=== PATIENT | female | born 1995 | race Asian ===

== ENCOUNTER 2017-04-15 17:47 | Emergency (ER) | payer SELFPAY ==
[2017-04-15] MEDS ORDERED: HYDROmorphone 0.5 MG/0.5 ML Syringe IM ONE (18:01)
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
--- NOTE | 2017-04-19 12:10 | CR ---
Chest: Portable view of the chest was obtained. Comparison: No prior study. Heart size and mediastinum are within normal limits. Lungs are clear. Bony structures are grossly intact. Impression: 1. Nothing acute is identified on portable chest x-ray. Diagnostic code #1
--- NOTE | 2017-04-19 16:02 | CT ---
CT lumbar spine Technique: Multiple axial sections were obtained from the mid T12 level inferiorly through the mid fifth sacral segment. Findings: Vertebral body heights and disc spaces are maintained. Fractures are seen within the left transverse process of L2, L3 and L4. Additional fracture is identified involving the inferior articular process of L5 within the L5-S1 right-sided apophyseal joint. No additional fracture or other abnormality is seen. No traumatic disc herniation is seen. No central canal stenosis or neural foraminal stenosis is seen. Impression: 1. Fractures within the left transverse processes of L2-L4. 2. Inferior articular process fracture on the right side at L5. Note: Please note level discrepancies between current exam and preliminary report felt to be caused by a transitional segment which I label as S1-S2 on current study. Diagnostic code #3 I agree with preliminary report issued by [facility] ([facility] report finalized on 04/15/17, 9:15 PM Central Time)
--- NOTE | 2017-04-19 16:02 | CR ---
Pelvis: AP view of the pelvis was obtained. Sacroiliac joints are within normal limits. Joint spaces are maintained within both hips. No acute fracture or other abnormality is appreciated within the pelvis or hips. Fracture is seen within the left third and fourth transverse process within the lumbar spine. Impression: 1. Transverse process fractures on the left side as noted above. 2. AP pelvis study is otherwise unremarkable. Diagnostic code #3
== END 2017-04-15 21:05 | disposition home or self-care (01) ==
LOC: JD.ED 17:47
DX: S32.049A Unspecified fracture of fourth lumbar vertebra, initial encounter for closed fracture (principal); S32.029A Unspecified fracture of second lumbar vertebra, initial encounter for closed fracture; S32.039A Unspecified fracture of third lumbar vertebra, initial encounter for closed fracture; S32.059A Unspecified fracture of fifth lumbar vertebra, initial encounter for closed fracture; V89.2XXA Person injured in unspecified motor-vehicle accident, traffic, initial encounter
CPT/HCPCS: 36415; 71010; 72131; 72170; 84703; 85025; 96372; 99285; G0390; J1170; 99284

== ENCOUNTER 2017-06-30 00:08 | Emergency (ER) | payer SELFPAY ==
[2017-06-30] MEDS ORDERED: Loratadine 10 MG Tab PO ONE (00:29)
[2017-06-30] MEDS ORDERED: valACYclovir 500 MG Tab PO ONE (01:14)
--- NOTE | 2017-06-30 01:21 | EDM.PDOC ---
ED HPI GENERAL MEDICAL PROBLEM - General Chief Complaint: Skin Complaint Stated Complaint: POSS ALLERGIC REACTION Time Seen by Provider: 06/30/17 00:20 Source of Information: Reports: Patient, RN Notes Reviewed - History of Present Illness INITIAL COMMENTS - FREE TEXT/NARRATIVE: 22-year-old female comes in with worsening rash. She had onset 2 lesions on her chest about 24-30 hours ago. She then over this past 24 hours has developed more lesions of her anterior chest and trunk and also spreading to face neck and scalp, much worse this evening. The initial lesion of her chest is now crusted. Other lesions are becoming vesicular. Quite itchy with this. No sore throat cough or congestion. No nausea vomiting or diarrhea. Of interest her significant other developed facial shingles about 3 weeks ago. For him the rash is now resolving. He was treated with acyclovir. Patient believes she may have had chickenpox as a child but not sure. She was raised in the [facility], not aware of ever getting the varicella-zoster vaccination. - Related Data Allergies Allergy/AdvReac Type Severity Reaction Status Date / Time No Known Allergies Allergy Verified 04/15/17 17:59 Home Meds: Home Meds valACYclovir HCl [Valacyclovir] 1,000 mg PO Q8HR #14 tablet 06/30/17 [Rx] Past Medical History - Past Health History Medical/Surgical History: Denies Medical/Surgical History Social & Family History - Family History Family Medical History: Noncontributory - Tobacco Use Smoking Status *Q: Never Smoker - Caffeine Use Caffeine Use: Reports: Coffee - Recreational Drug Use Recreational Drug Use: No ED ROS GENERAL - Review of Systems Review Of Systems: See Below Constitutional: Denies: Fever, Chills HEENT: Denies: Throat Pain Respiratory: Denies: Shortness of Breath, Cough Cardiovascular: Denies: Chest Pain GI/Abdominal: Denies: Abdominal Pain, Nausea, Vomiting Musculoskeletal: Reports: No Symptoms Skin: Reports: Rash (Rash started on chest yesterday and today spreading to neck , face and scalp, a few lesions starting to appear on proximal arms and legs) Neurological: Denies: Headache, Numbness, Tingling, Trouble Speaking, Difficulty Walking, Weakness ED EXAM, SKIN/RASH Exam: See Below General Appearance: Alert, Mild Distress Eye Exam: Bilateral Eye: PERRL Throat/Mouth: Normal Inspection, Normal Oropharynx Head: No: Facial Swelling Neck: Supple Respiratory/Chest: No Respiratory Distress, Lungs Clear, Normal Breath Sounds Cardiovascular: Regular Rate, Rhythm Extremities: Normal Inspection, Normal Range of Motion Neurological: Alert, Oriented, No Motor/Sensory Deficits Skin: Warm, Dry, Normal Color, Rash (Raised erythematous papules anterior and posterior trunk with scattered vesicular lesions, one crusted lesion upper chest , quite dense rash neck and face as well mostly papular with some scattered vesicular lesions as well. Few very small macular lesions proximal arms and legs.) Course - Vital Signs Last Recorded V/S: Last Vital Signs Temp 99.4 F 06/30/17 00:12 Pulse 96 06/30/17 00:12 Resp 20 06/30/17 00:12 BP 106/85 06/30/17 00:12 Pulse Ox 99 06/30/17 00:12 - Orders/Labs/Meds Labs: Laboratory Tests 06/30/17 Range/Units 01:05 Urine HCG, Qual Negative (NEGATIVE) Meds: Medications Discontinued Medications Generic Name Dose Route Start Last Admin Trade Name Leonard PRN Reason Stop Dose Admin Acyclovir 800 mg 06/30/17 00:48 Zovirax PO 06/30/17 00:49 ONETIME ONE Loratadine 10 mg 06/30/17 00:29 06/30/17 00:35 Claritin PO 06/30/17 00:30 10 mg ONETIME ONE Administration Valacyclovir HCl 1,000 mg 06/30/17 01:14 06/30/17 01:27 Valtrex PO 06/30/17 01:15 1,000 mg ONETIME ONE Administration - Re-Assessments/Exams Free Text/Narrative Re-Assessment/Exam: 06/30/17 01:38 test did come back negative. Have given Claritin 10 mg by mouth for itchiness. We'll start on valacyclovir 1000 mg 3 times daily for 5 days. Departure - Departure Time of Disposition: 01:17 Disposition: Home, Self-Care 01 Condition: Fair Clinical Impression: Chicken pox Qualifiers: Varicella complications: without complication Qualified Code(s): B01.9 - Varicella without complication - Discharge Information Prescriptions: valACYclovir HCl [Valacyclovir] 1,000 mg PO Q8HR #14 tablet Referrals: PCP,None [Primary Care Provider] - Forms: ED Department Discharge Additional Instructions: Your symptoms and clinical findings are totally compatible with chickenpox viral infection. You're very contagious until all of the lesions have crusted over and dried, about one week. Therefore stay away from other people as much as possible, especially the very young and the very old or anyone that has underlying medical problems. Drink plenty of water to maintain hydration. Claritin 10 mg daily as needed for itchiness, available OTC. Valcyclovir 1000 mg 3 times daily for 5 days or until gone. Return to ED as needed if symptoms worsening in any way. Follow-up at our [facility] medical clinic in about 10-14 days once you know you are completely done with this illness. Call [phone] for appointment.
== END 2017-06-30 01:30 | disposition home or self-care (01) ==
LOC: JD.ED 00:08
DX: B01.9 Varicella without complication (principal)
CPT/HCPCS: 81025; 99283; A9270